=== PATIENT | female | born 1985 | race African-American/Black ===

== ENCOUNTER 2018-06-09 07:56 | Day surgery (SDC) | payer OTHER ==
[2018-06-09] MEDS ORDERED: ceFAZolin SODIUM 1 GM VIAL ONE (08:48)
[2018-06-09] MEDS ORDERED: SEVOFLURANE 250 ML LIQUID IH ONE (08:48)
[2018-06-09] MEDS ORDERED: LIDOCAINE HCL 1% PF 300MG/30ML VIAL ONE (08:48)
[2018-06-09] MEDS ORDERED: ROCURONIUM BROMIDE 10 MG/ML 5ML VIAL ONE (08:48)
[2018-06-09] MEDS ORDERED: PROPOFOL 200 MG/20 ML VIAL IV ONE (08:48)
[2018-06-09] MEDS ORDERED: fentaNYL CITRATE/PF 100 MCG/2 ML INJ. ONE ×3 (08:48→13:13)
[2018-06-09] MEDS ORDERED: FAMOTIDINE 20 MG/2 ML VIAL ONE (08:48)
[2018-06-09] MEDS ORDERED: FENTANYL CITRATE/PF 250 MCG/5 ML INJ. ONE (08:48)
[2018-06-09] MEDS ORDERED: LACTATED RINGERS 1,000 ML IV.SOLN IV ONE ×2 (08:48)
[2018-06-09] MEDS ORDERED: SODIUM CHLORIDE IRRIG SOLUTION 3,000 ML IRRIG.SOLN IR ONE (08:48)
[2018-06-09] MEDS ORDERED: LEVALBUTEROL NEB 1.25 MG/3 ML VIAL.NEB IH ONE (08:48)
[2018-06-09] MEDS ORDERED: ENOXAPARIN SODIUM 40 MG/0.4 ML DISP.SYRIN SQ ONE (08:48)
[2018-06-09] MEDS ORDERED: LIDOCAINE HCL 2% PF 100MG/5ML VIAL IJ ONE (08:48)
[2018-06-09] MEDS ORDERED: BUPIV. HCL 0.25% (2.5MG/ML)/EPI. (1:200,000) PF 30 ML VIAL IJ ONE (08:48)
[2018-06-09] MEDS ORDERED: SUGAMMADEX SODIUM 200 MG/2 ML VIAL IV ONE (08:48)
[2018-06-09] MEDS ORDERED: DEXAMETHASONE SODIUM PHOSPHATE 10 MG/ML VIAL ONE (08:48)
[2018-06-09] MEDS ORDERED: ONDANSETRON HCL/PF 4 MG/ 2ML VIAL ONE (08:48)
[2018-06-09] MEDS ORDERED: SCOPOLAMINE HYDROBROMIDE 1.5MG/72HR PATCH TD ONE (08:48)
[2018-06-09] MEDS ORDERED: MIDAZOLAM HCL 2 MG/2 ML VIAL ONE (08:48)
--- NOTE | 2018-06-12 09:32 | Operative Note ---
PREOPERATIVE DIAGNOSIS: 1. Morbid obesity. 2. Type 2 diabetes. 3. Hypertension. 4. Sleep apnea. POSTOPERATIVE DIAGNOSIS: 1. Morbid obesity. 2. Type 2 diabetes. 3. Hypertension. 4. Sleep apnea. PROCEDURES PERFORMED: 1. Laparoscopic vertical sleeve gastrectomy. 2. Upper gastrointestinal endoscopy. SURGEON: Zaheer Leslie M.D. INDICATIONS FOR PROCEDURE: Ms. Overton is a 32-year-old female who presented with features of morbid obesity. She was noted to have a weight of 369 pounds with a BMI of 68.3 with the above-listed comorbidities. The patient was advised laparoscopic vertical sleeve gastrectomy and possible hiatal hernia repair. The patient showed understanding and agreed to proceed. DESCRIPTION OF PROCEDURE: After explaining to the patient in detail and informed consent was obtained, the patient was identified in the preoperative holding area. The patient was transferred to the operating room and was placed in supine position. Sequential compressive devices were placed for DVT prophylaxis. Preoperative antibiotics were given. After induction of anesthesia, the abdomen was prepped and draped in a sterile fashion. Through a left upper quadrant 1-cm incision, and using Optiview technique, the peritoneal cavity was entered and pneumoperitoneum was created. Thereafter, under direct vision, another 5-mm trocar was placed in the left midabdomen and another 15-mm trocar was placed in the right midabdomen. Through a 1-cm incision in the right subcostal region, another 5-mm trocar was placed. Through a 1-cm incision in the epigastrium, a Fredis retractor was introduced and the left lobe of the liver was retracted. On initial inspection, the patient was noted to have no evidence of hiatal hernia. I took down the gastroepiploic vessels using a LigaSure. This was continued superiorly. The short gastric vessels were taken down. The gastrophrenic ligament was divided and the Angle of His was mobilized. The posterior attachments of the stomach on the pancreas were released. Distally, the gastroepiploic vessels were taken down up to about 4 cm proximal to the pylorus. At this point, a #38 [place] Hurst Bougie was introduced into the stomach and was placed along the lesser curve. The stomach was then divided in a vertical fashion with multiple Endo KEELY Covidien Black Load Staplers. The first firing was directed outwards towards the greater curvature. Subsequent firings were directed towards the Angle of His to create a loose sleeve around the #38 [place] bougie. The bougie was then removed and an upper GI endoscopy was performed at this point. The scope was introduced into the esophagus and was gradually advanced into the stomach. The GE junction appeared normal. The sleeve size appeared normal. No evidence of any active bleeding was noted. The stomach was insufflated with air and irrigation of fluid along the staple line revealed no evidence of air leak. The stomach was then suctioned out and the scope was removed. Absolute hemostasis was ensured. Thorough saline irrigation was given. The Fredis retractor was removed. Approximately 10 mL of a lidocaine- Marcaine mix was instilled under the left hemidiaphragm. The sleeve gastrectomy specimen was removed. The abdomen was then deflated. The incisions were closed with 4-0 Monocryl. Dermabond was applied. Approximately 10 mL of a lidocaine- Marcaine mix was injected into all the incisions. The patient was awakened from anesthesia and was transferred to the recovery room in stable condition. ESTIMATED BLOOD LOSS: Approximately 10 mL. CONDITION OF THE PATIENT: Stable. FLUIDS GIVEN: Per Anesthesia note. SPECIMEN(S) SENT: Sleeve gastrectomy specimen. COMPLICATIONS: None. ANESTHESIA: General. Zaheer Leslie M.D. THALIA/ryan @1232 @0825 MTDD
== END 2018-06-09 14:00 | disposition other institution (70) ==
LOC: OPSURG 07:56
PROVIDERS: ATTEND Surgery
DX: E66.01 Morbid (severe) obesity due to excess calories (principal); Z68.44 Body mass index [BMI] 60.0-69.9, adult; E11.9 Type 2 diabetes mellitus without complications; I10 Essential (primary) hypertension; G47.33 Obstructive sleep apnea (adult) (pediatric)
CPT/HCPCS: 43235; 43775; A9270; J0690; J1650; J2001; J2250; J2405; J2704; J3010; J7120; J7614

== ENCOUNTER 2018-06-09 14:00 | Inpatient (IN) | payer OTHER ==
[2018-06-09] MEDS ORDERED: HYDROCODON-ACETAMIN 7.5-325/15ML SOLN UD CUP PO PRN (14:22)
[2018-06-09] MEDS ORDERED: ONDANSETRON HCL/PF 4 MG/ 2ML VIAL IVP PRN (14:22)
[2018-06-09] MEDS ORDERED: PROMETHAZINE HCL 25 MG in 0.9 % SODIUM CHLORIDE 50 ML IV PRN (14:22)
--- NOTE | 2018-06-09 14:55 | History and Physical Report ---
History of Present Illnes - History of Present Illness Reason for Visit: S/P Gastric Sleeve History of Present Illness: Patient is a 32-year-old female who has tried multiple diets and exercise programs with no success. She has always struggled with her weight. However, she has had a great reduction in weight loss from 2017. November of 2016 she states that she weighed 454 pounds and when she saw plate inspector on 05/23/18 for surgery clearance she weighed 375 pounds. She has been walking and doing water aerobics 3 times a week. She is now utilizing the treadmill and elliptical machine. Because of improvement she was cleared by cardiology. Note suggested that patient may resume Eliquis when she is stable after surgery. Recommended continuing Diltiazem for rate control d/t h/o A-fib. Patient and surgeon decided to proceed with gastric sleeve procedure after cardiology clearance. Procedure went well- patient will be admitted and monitored s/p surgical intervention. Patient has been on a liquid diet prior to surgery so she is a risk of dehydration s/p surgery and with diabetes history. She will be admitted for IV hydration to help hydrate patient until she is able to tolerate a sufficient oral intake, will treat pain with IV medication until patient is able to tolerate oral meds, IV antiemetics to help reduce episodes of nausea and/or vomiting. Patient will be monitored closely using telemetry d/t h/o A-Fib and will monitor blood pressures d/t h/o HTN. We will check blood sugars regularly and work to prevent hyperglycemia. - Past Medical History Cardiac: AFIB (last episode of afib in 2017), HTN, Other (EF 65% on 05/23/18) Pulmonary: Asthma, Sleep Apnea (with cpap) Gastrointestinal: GERD Psych: Anxiety, Depression Musculoskeletal: Chronic low back pain, Osteoarthritis Endocrine: Diabetes, obesity Grav: 0 - Past Surgical History Past Surgical History: Other (D&C) - Past Family History Mother Family History: Other (obese) Father Family History: Hypertension - Past Social History Smoke: Quit (2013) Alcohol: None Drugs: Marijuana Lives: With Family Domestic Violence: Negative - Health Maintenance Health Maintenance: Tetanus. denies: Influenza Vaccine Influenza Vaccine: Patient Refused Pneumonia Vaccine: No Resuscitation Status: Resusciation Status Resuscitation Status Full Code - Unable to Obtain History Unable to Obtain: No Review of Systems - Review of Systems Constitutional: Weakness Eyes: negative: pain, conjunctivae inflammation ENT: negative: Ear Pain, Nose Pain, Throat Pain Respiratory: negative: Cough, Shortness of Breath Cardiovascular: negative: Chest Pain, Light Headedness Gastrointestinal: Nausea, Vomiting, Abdominal Pain (s/p gastric sleeve). negative: Melena Genitourinary: negative: Dysuria Musculoskeletal: Back Pain (chronic) Skin: Other (x5 incision sites). negative: Rash Neurological: Weakness. negative: Confusion - Medications/Allergies Allergies/Adverse Reactions: Allergies Allergy/AdvReac Type Severity Reaction Status Date / Time metronidazole Allergy Verified 06/09/18 14:30 tramadol Allergy Verified 06/09/18 14:30 Home Medications: Home Medications Albuterol Sulfate [Proair HFA] 1 inh IH PRN PRN 06/09/18 Apixaban [Eliquis] 5 mg PO DAILY 06/09/18 Diltiazem HCl 120 mg PO Q12H 06/09/18 Furosemide [Lasix] 40 mg PO DAILY 06/09/18 Hydrochlorothiazide [Hydrodiuril] 37.5 mg PO DAILY 06/09/18 Metformin HCl 1,000 mg PO DAILY 06/09/18 Ranitidine HCl 150 mg PO DAILY 06/09/18 Current Inpatient Medications: Current Inpatient Medications Cefazolin Sodium/Dextrose (Ancef 1 Gm/50 Ml-Dextrose) 1 gm IV Q8H [facility] Stop: 06/10/18 03:01 Enoxaparin Sodium (Lovenox) 40 mg SQ DAILY [facility] Stop: 06/24/18 08:59 Famotidine (Pepcid) 20 mg IVP BID [facility] Stop: 06/13/18 20:59 Hydrochlorothiazide (Hydrodiuril) 37.5 mg PO DAILY [facility] Promethazine HCl 25 mg/ Sodium (Chloride) 51 mls @ 200 mls/hr IV Q6 PRN PRN Reason: Nausea / Vomiting Stop: 06/13/18 14:21 Sodium Chloride (Normal Saline) 1,000 mls @ 150 mls/hr IV Q8H [facility] Ketorolac Tromethamine (Toradol) 30 mg IVP Q6 PRN PRN Reason: For Mild Pain Stop: 06/13/18 14:21 Miscellaneous (Chem Sticks) 1 each CHEMQID [facility] Miscellaneous (Diltiazem Hcl [Diltiazem Hcl]) 120 mg PO Q12H [facility] Morphine Sulfate (Morphine Sulfate) 2 mg IVP Q2 PRN PRN Reason: MODERATE PAIN Stop: 06/13/18 14:21 Ondansetron HCl (Zofran) 4 mg IVP Q6H PRN PRN Reason: Nausea / Vomiting Stop: 06/13/18 14:21 Oxycodone HCl (Roxicodone) 5 mg PO Q4H PRN PRN Reason: PAIN Exam - Exam General: Alert, Oriented to Person, Oriented to Place, Oriented to Time, Cooperative, Mild distress, Morbidly Obese HEENT: PERRLA, Mouth Mucous membr. moist/[place], Nose Mucous membr. moist/[place] Neck: Normal Range of Motion Carotids: no bruit Lungs: Clear to auscultation, Normal air movement, Speaks full Sentences (but appears to be uncomfortable) Cardiovascular: Regular rate, Normal S1, Normal S2 Peripheral Edema: None Peripheral Pulses: 2+ Abdomen: Soft, Decreased Bowel Sounds Integumentary: [place], Warm, Dry, Other (incision site x5 drsgs dry/intact) Extremities: No edema, Normal pulses, No tenderness/swelling Neurological: Normal speech, Strength Equal Bilat, Sensation intact, Generalized Weakness (s/p surgery) Psych/Mental Status: Mental status NL, Mood NL, Appropriate Affect Assessment/Plan - Assessment/Plan (1) S/P gastric surgery Status: Acute Current Visit: Yes Plan: Plan to admit for IV hydration, IV pain meds, and IV antiemetics. Lovenox to help prevent DVTs and SCD's, IS and frequent ambulation will be implemented. Start ice chips and advance diet as tolerated. Patient is actively vomiting- we will give IV anti-emetics- IV fluids, and IV pain meds for severe pain from vomiting and s/p surgery. (2) Morbid obesity due to excess calories Status: Acute Current Visit: Yes Plan: Patient is s/p gastric sleeve. We will assist patient with implementing gastric sleeve diet protocol starting with ice chips and clear liquids and advancing as tolerated. 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 Blood pressure checks every 4 hours and prn (5) Atrial fibrillation Status: Acute Current Visit: Yes Qualifiers: Atrial fibrillation type: paroxysmal Qualified Code(s): I48.0 - Paroxysmal atrial fibrillation Plan: Will continue with Diltiazem per Cardiology recommendation for rate control (last [facility] hospitalization was 2016). We will restart Eliquis on Discharge once patient reaches homostasis, and will keep patient on telemetry during hospitalization- we will also continue with HCTZ and monitor blood pressure closely (6) Obstructive sleep apnea Status: Acute Current Visit: Yes Plan: Plan is to continue with CPAP with same home settings (7) Anxiety and depression Status: Acute Current Visit: Yes Plan: Patient not currently on medication- will offer activities for patient such as; TV, walking, reading (8) Osteoarthritis Status: Acute Current Visit: Yes Qualifiers: Osteoarthritis location: multiple joints Osteoarthritis type: unspecified Qualified Code(s): M15.9 - Polyosteoarthritis, unspecified Plan: Will treat accordingly- may offer K-Pad for back as needed- encourage ambulation (9) GERD (gastroesophageal reflux disease) Status: Acute Current Visit: Yes Qualifiers: Esophagitis presence: without esophagitis Qualified Code(s): K21.9 - Gastro-esophageal reflux disease without esophagitis Plan: We will implement Pecid IV BID to help with GERD while patient is hospitalized to decrease acid reflux and until patient can tolerate oral medications (10) Chronic back pain Status: Acute Current Visit: Yes Qualifiers: Back pain location: low back pain Back pain laterality: unspecified Sciatica presence: unspecified whether sciatica present Qualified Code(s): M54.5 - Low back pain; G89.29 - Other chronic pain Plan: If back pain persists on admission we can offer K-pad (heating pad) VTE Assessment - RISK FACTOR SCORE VTE RISK FACTOR SCORES: OBESITY, MAJOR SURGERY/ANESTHESIA TIME > 1 HOUR - RISK VTE MODERATE RISK: SCORE OF 2 (RISK PROXIMAL DVT 2-4%) PROPHYAXIS NEEDED (Lovenox daily, SCDs while in bed, Frequent ambulation)
[2018-06-09] MEDS: MORPHINE SULFATE 4 MG/ML VIAL IVP PRN ×2 (14:59→22:25)
[2018-06-09] MEDS: 0.9 % SODIUM CHLORIDE 1,000 ML IV SCH (15:35)
[2018-06-09] MEDS ORDERED: fentaNYL CITRATE/PF 100 MCG/2 ML INJ. IV PRN (16:08)
[2018-06-09] MEDS ORDERED: fentaNYL CITRATE/PF 100 MCG/2 ML INJ. ONE (16:09)
[2018-06-09] MEDS: KETOROLAC TROMETHAMINE 30 MG/1ML VIAL IVP PRN (18:08)
[2018-06-09 18:34] VITALS: BMI 68.2
[2018-06-09] MEDS: CEFAZOLIN SODIUM/DEXTROSE,ISO 1 GM/50 ML PIGGYBACK IV SCH (19:03)
[2018-06-09] MEDS: DILTIAZEM HCL 30 MG TABLET PO SCH (21:48)
[2018-06-09] MEDS: FAMOTIDINE 20 MG/2 ML VIAL IVP SCH (23:00)
[2018-06-10] MEDS: MORPHINE SULFATE 4 MG/ML VIAL IVP PRN ×2 (02:19→20:16)
[2018-06-10] MEDS: CEFAZOLIN SODIUM/DEXTROSE,ISO 1 GM/50 ML PIGGYBACK IV SCH (03:43)
[2018-06-10] MEDS: 0.9 % SODIUM CHLORIDE 1,000 ML IV SCH ×4 (05:30→20:45)
[2018-06-10] MEDS: KETOROLAC TROMETHAMINE 30 MG/1ML VIAL IVP PRN ×2 (06:33→18:56)
--- NOTE | 2018-06-10 08:37 | Inpatient Progress Note ---
Subjective - Required Recertification Statement I anticipate X number of days because-include discharge plan: 1 - Review of Systems Events since last encounter: According to nursing staff/patient; she has been up ambulating in the you frequently, using Incentive Spirometer, and wearing SCDs while in bed. She has had some nausea controlled with IV antiemetics- denies any vomiting. RN stated that she changed the 2 dressings above the umbilicus due to bleeding- not concerning- pt was previously on Eliquis prior to surgery for A-fib but we will continue to monitor. Patient states abdominal discomfort is improving now that she is passing gas and belching. Blood sugars are well controlled ranging less than 115. Blood pressures are running around 140s-and HR in the 80s- we will keep her on Telemetry and Diltiazem for rate control. General: Denies: Chills, Night Sweats HEENT: Denies: Head Aches, Ear Pain, Dysphasia Pulmonary: Denies: Dyspnea, Cough, Pleuritic Chest Pain Cardiovascular: Denies: Chest Pain, Palpitations, Light Headedness Gastrointestinal: Nausea, Abdominal Pain. Denies: Vomiting Genitourinary: Denies: Dysuria Musculoskeletal: Denies: Back Pain Neurological: Weakness. Denies: Numbness, Incoordination Objective - Exam Vitals and I&O: Vital Signs Temp 97.5 F L 06/10/18 08:06 Pulse 80 06/10/18 08:06 Resp 18 06/10/18 08:06 BP 140/73 06/10/18 08:06 Pulse Ox 95 06/10/18 08:06 Intake & Output 06/09/18 06/09/18 06/10/18 11:59 23:59 11:59 Intake Total 400 180 Output Total 200 300 Balance 200 -120 Weight 163.747 kg Intake: IV 300 150 Left Antecubital 300 150 Oral 100 30 Output: Urine 200 300 Other: Voiding Method Toilet Toilet # Voids 1 General: Alert, Oriented to Person, Oriented to Place, Oriented to Time, Cooperative, Mild distress, Morbidly Obese HEENT: PERRLA, Mouth Mucous membr. moist/[place], Nose Mucous membr. moist/[place] Neck: +2 carotid pulse wo bruit Lungs: Clear to auscultation, Normal air movement, Speaks full Sentences Cardiovascular: Regular rate, Normal S1, Normal S2 Abdomen: Soft, Decreased Bowel Sounds Skin: Normal, [place], Warm, Dry Neurological: Normal gait, Normal speech, Strength Equal Bilat, Sensation intact, Cranial nerves 3-12 NL Psych/Mental Status: Mental status NL, Mood NL, Appropriate Affect, Intact Judgment Assessment/Plan - Assessment/Plan (1) S/P gastric surgery Status: Acute Plan: Will continue to keep patient on telemetry and monitor rate and control with Diltiazem, continue IVF for hydration due to nausea until patient is able to tolerate PO sufficiency, Will continue on Lovenox and SCDs due to holding Eliquis for surgery, continuing with pain control (2) Morbid obesity due to excess calories Status: Acute Plan: Advancing diet per gastric sleeve protocol (3) Type 2 diabetes mellitus Status: Acute Qualifiers: Diabetes mellitus care home insulin use: without care home use Diabetes mellitus complication status: with hyperglycemia Qualified Code(s): E11.65 - Type 2 diabetes mellitus with hyperglycemia Plan: Continuing to hold Metformin. Continue to monitor blood sugars every 6 hours. Results <116 (4) Hypertension Status: Acute Qualifiers: Hypertension type: essential hypertension Qualified Code(s): I10 - Essential (primary) hypertension Plan: Continuing to monitor blood pressures every 4 hours and prn- will continue to give HCTZ and Diltiazem- blood pressures ranging 140s (5) Atrial fibrillation Status: Acute Qualifiers: Atrial fibrillation type: paroxysmal Qualified Code(s): I48.0 - Paroxysmal atrial fibrillation Plan: Continue Diltiazem for rate control, SCDs while in bed, frequent ambulation, and Lovenox daily to prevent DVTs, will continue patient on telemetry (6) Obstructive sleep apnea Status: Acute Plan: Continue use of CPAP at HS (7) Anxiety and depression Status: Acute Plan: Will get patient out of room and ambulate- friend is at bedside (8) Osteoarthritis Status: Acute Qualifiers: Osteoarthritis location: multiple joints Osteoarthritis type: unspecified Qualified Code(s): M15.9 - Polyosteoarthritis, unspecified Plan: Patient encouraged to stay out of bed and ambulate- sit up in chair- use incentive spirometer (9) GERD (gastroesophageal reflux disease) Status: Acute Qualifiers: Esophagitis presence: without esophagitis Qualified Code(s): K21.9 - Gastro-esophageal reflux disease without esophagitis Plan: Will continue with Pepcid IV BID- pt still c/o nausea (10) Chronic back pain Status: Acute Qualifiers: Back pain location: low back pain Back pain laterality: unspecified Sciatica presence: unspecified whether sciatica present Qualified Code(s): M54.5 - Low back pain; G89.29 - Other chronic pain Plan: frequent ambulation- may use K-Pad if needed
[2018-06-10] MEDS: HYDROCHLOROTHIAZIDE 25 MG TABLET PO SCH (10:18)
[2018-06-10] MEDS: DILTIAZEM HCL 30 MG TABLET PO SCH ×2 (10:18→20:14)
[2018-06-10] MEDS: FAMOTIDINE 20 MG/2 ML VIAL IVP SCH ×2 (10:25→20:16)
[2018-06-10] MEDS: ENOXAPARIN SODIUM 40 MG/0.4 ML DISP.SYRIN SQ SCH (10:26)
[2018-06-10] MEDS ORDERED: MAG HYDROX/ALUMINUM HYD/SIMETH 30 ML UDC PO PRN (13:42)
[2018-06-10] MEDS ORDERED: MAG HYDROX/ALUMINUM HYD/SIMETH 30 ML UDC PO ONE (13:47)
[2018-06-10] MEDS: OXYCODONE HCL 5 MG/5 ML SOLN UD CUP PO PRN (14:00)
[2018-06-10] MEDS ORDERED: MORPHINE SULFATE 5 MG/ML ML ONE (20:12)
[2018-06-11] MEDS: 0.9 % SODIUM CHLORIDE 1,000 ML IV SCH (03:17)
[2018-06-11] MEDS: KETOROLAC TROMETHAMINE 30 MG/1ML VIAL IVP PRN (03:18)
[2018-06-11] MEDS: FAMOTIDINE 20 MG/2 ML VIAL IVP SCH (08:27)
[2018-06-11 08:49] VITALS: BP 118/65
[2018-06-11] MEDS: OXYCODONE HCL 5 MG/5 ML SOLN UD CUP PO PRN (08:55)
[2018-06-11] MEDS: DILTIAZEM HCL 30 MG TABLET PO SCH (09:02)
[2018-06-11] MEDS: HYDROCHLOROTHIAZIDE 25 MG TABLET PO SCH (09:02)
[2018-06-11] MEDS: ENOXAPARIN SODIUM 40 MG/0.4 ML DISP.SYRIN SQ SCH (09:03)
--- NOTE | 2018-06-11 09:15 | Discharge Summary ---
Discharge Summary - Discharge Sumary History of Present Illness: Patient is a 32-year-old female who has tried multiple diets and exercise programs with no success. She has always struggled with her weight. However, she has had a great reduction in weight loss from 2017. November of 2016 she states that she weighed 454 pounds and when she saw clinical medical transcriptionist on 05/23/18 for surgery clearance she weighed 375 pounds. She has been walking and doing water aerobics 3 times a week. She is now utilizing the treadmill and elliptical machine. Because of improvement she was cleared by cardiology. Note suggested that patient may resume Eliquis when she is stable after surgery. Recommended continuing Diltiazem for rate control d/t h/o A-fib. Patient and surgeon decided to proceed with gastric sleeve procedure after cardiology clearance. Procedure went well- patient will be admitted and monitored s/p surgical intervention. Patient has been on a liquid diet prior to surgery so she is a risk of dehydration s/p surgery and with diabetes history. She will be admitted for IV hydration to help hydrate patient until she is able to tolerate a sufficient oral intake, will treat pain with IV medication until patient is able to tolerate oral meds, IV antiemetics to help reduce episodes of nausea and/or vomiting. Patient will be monitored closely using telemetry d/t h/o A-Fib and will monitor blood pressures d/t h/o HTN. We will check blood sugars regularly and work to prevent hyperglycemia. Condition at Discharge: Stable Home Medications: Ambulatory Orders Medication Instructions Recorded Albuterol Sulfate [Proair HFA] 1 inh IH PRN PRN 06/09/18 Apixaban [Eliquis] 5 mg PO DAILY 06/09/18 Diltiazem HCl 120 mg PO Q12H 06/09/18 Furosemide [Lasix] 40 mg PO DAILY 06/09/18 Hydrochlorothiazide [Hydrodiuril] 37.5 mg PO DAILY 06/09/18 Metformin HCl 1,000 mg PO DAILY 06/09/18 Ranitidine HCl 150 mg PO DAILY 06/09/18 Consultations this Visit: None Procedures this Visit: Other (sleeve gastrectomy) Allergies/Adverse Reactions: Allergies Allergy/AdvReac Type Severity Reaction Status Date / Time metronidazole Allergy Verified 06/09/18 14:30 tramadol Allergy Verified 06/09/18 14:30 Patient Problems: Current Active Problems Problem Status Onset Anxiety and depression Acute Atrial fibrillation Acute Chronic back pain Acute GERD (gastroesophageal reflux disease) Acute Hypertension Acute Morbid obesity due to excess calories Acute Obstructive sleep apnea Acute Osteoarthritis Acute S/P gastric surgery Acute Type 2 diabetes mellitus Acute Discharge Summary: Patient underwent sleeve gastrectomy for morbid obesity. She was admitted to Acute Care for treatment of nausea and pain with IV anti-emetics and pain medication. She began passing gas and did a good job walking. Diet advanced. She has a h/o Afib on Eliquis. Telemetry showed rate control on her normal diltiazem dose in the post op period. She took lasix at home for fluid retention. This was held during admission and on discharge until she talks to PCP for fear of dehydration. Eliquis will be held until she talks to her PCP. Octavia, SCD, IS and ambulation utilized. Discharged home in good condition. Hospital Course: Discharge Dx. Morbid Obesity - s/p sleeve gastrectomy. Afib. DM. LARISSA. Disposition - home
== END 2018-06-11 10:40 | disposition home or self-care (01) | DRG 641 ==
LOC: SOUTH 14:00
PROVIDERS: ADMIT Nurse Practitioner Family; ATTEND Nurse Practitioner Family
DX: E66.01 Morbid (severe) obesity due to excess calories (principal); R11.2 Nausea with vomiting, unspecified; G89.28 Other chronic postprocedural pain; E11.9 Type 2 diabetes mellitus without complications; I10 Essential (primary) hypertension; G47.33 Obstructive sleep apnea (adult) (pediatric); I48.2 Chronic atrial fibrillation; F41.9 Anxiety disorder, unspecified; F32.9 Major depressive disorder, single episode, unspecified; M19.90 Unspecified osteoarthritis, unspecified site; Z68.44 Body mass index [BMI] 60.0-69.9, adult
CPT/HCPCS: 97116; 97161; 97165; 97535; J1650; J1885; J2270; J2405; J3010; J7030; 99231; 99232; 99238